=== PATIENT | female | born 2000 | race Caucasian/White ===

== ENCOUNTER 2023-01-02 10:04 | Emergency (ER) | payer BC ==
[~2023-01-02] VITALS: Ht 172.7 cm; Wt 82.0 kg
[2023-01-02 10:05] VITALS: BP 123/79; TEMP 97.9; O2SAT 100
== END 2023-01-02 12:57 | disposition home or self-care (01) ==
LOC: M ED 10:04
DX: S61.204A Unspecified open wound of right ring finger without damage to nail, initial encounter (principal); W27.4XXA Contact with kitchen utensil, initial encounter; Y92.000 Kitchen of unspecified non-institutional (private) residence as the place of occurrence of the external cause; Y93.G1 Activity, food preparation and clean up; Y99.8 Other external cause status